=== PATIENT | female | born 1965 | race Caucasian/White ===

== ENCOUNTER 2018-11-20 14:29 | Inpatient (IN) ==
[2018-11-20] MEDS ORDERED: DILTIAZEM 50 MG/10 ML VIAL IV STA (15:21)
[2018-11-20] MEDS ORDERED: ENOXAPARIN 100 MG/ML SYRINGE SUBCUT STA (15:21)
[2018-11-20 15:29] LABS: Basophils # 0.1 10*3/uL (0.0-0.2); Basophils % 0.6 % (0.0-0.8); Eosinophils # 0.3 10*3/uL (0.0-0.87); Eosinophils % 1.9 % (0.00-10.9); Hematocrit 49.8 VOL% (35.7-47.0); Hemoglobin 15.6 GM/DL (12.0-16.0); Immature Granulocytes % 0.4 %; Immature Granulocytes Absolute 0.06 #; Lymphocytes # 3.5 10*3/uL (1.4-4.0); Lymphocytes % 26.5 % (21.3-54.2); Mean Corpuscular HGB Conc 31.3 GM/DL (32-36); Mean Corpuscular Volume 97.5 FL (87-102); Mean Platelet Volume 12.2 FL (9.6-12.0); Monocytes % 7.5 % (1.7-12.7); Neutrophils % 63.1 % (38.7-73.9); Platelet Count 285 T/CUMM (130-400); Red Blood Count 5.11 MC/CUMM (3.8-5.5); Red Cell Distribution Width 14.7 % (9.3-17.3); White Blood Count 13.4 T/CUMM (4-12)
[2018-11-20] MEDS: dilTIAZem Drip 125 MG/125 ML PREMIX IV SCH ×2 (15:45→23:44)
[2018-11-20 15:48] LABS: Albumin 4.1 G/DL (3.4-5.0); Bilirubin,Total 0.7 MG/DL (0.2-1.0); Calcium 10.2 MG/DL (8.5-10.1); Osmolality,Calculated 287.3 MOS/KG (273-304); Thyroid Stimulating Hormone 6.91 uIU/ml (0.358-3.74); Total Protein 7.8 G/DL (6.4-8.3)
[2018-11-20] MEDS ORDERED: ATENOLOL 25 MG TABLET ONE (16:58)
[2018-11-20] MEDS ORDERED: ATENOLOL 25 MG TABLET PO STA (16:59)
[2018-11-20] MEDS ORDERED: DOCUSATE SODIUM 100 MG CAPSULE PO PRN (20:26)
[2018-11-20] MEDS ORDERED: ONDANSETRON 4 MG/2 ML VIAL IV PRN (20:26)
[2018-11-20] MEDS ORDERED: ACETAMINOPHEN 325 MG TABLET PO PRN (20:26)
[2018-11-20] MEDS ORDERED: ATENOLOL 50 MG TABLET PO SCH (21:00)
[2018-11-20] MEDS: SODIUM CHLORIDE 0.9% 1,000 ML IV SCH (21:16)
[2018-11-20] MEDS: CETIRIZINE 10 MG TABLET PO SCH (21:17)
[2018-11-20] MEDS: GABAPENTIN 300 MG CAPSULE PO SCH (21:17)
[2018-11-20] MEDS: CHOLECALCIFEROL 1,000 UNIT TABLET PO SCH (21:17)
[2018-11-20] MEDS: ATORVASTATIN 10 MG TABLET PO SCH (21:18)
[2018-11-20] MEDS: ESCITALOPRAM 10 MG TABLET PO SCH (21:18)
[2018-11-20] MEDS: ESTRADIOL 1 MG TABLET PO SCH (21:18)
[2018-11-20] MEDS: POTASSIUM GLUCONATE 500 MG TABLET PO SCH (21:22)
[2018-11-21 00:12] LABS: Apearance,Urine CLEAR (Clear); Bilirubin,Urine Negative (Negative); Blood, Urine Negative (Negative); Glucose,Urine (UA) Negative (Negative); Ketones,Urine Negative (Negative); Nitrite,Urine Negative (Negative); Protein,Urine Negative; Urine Color Yellow (Yellow); Urine Specific Gravity 1.013 (1.001-1.035); Urine Urobilinogen < 2.0 EU/DL (0.2-1.0)
[2018-11-21 03:34] LABS: Basophils # 0.1 10*3/uL (0.0-0.2); Basophils % 0.6 % (0.0-0.8); Eosinophils # 0.4 10*3/uL (0.0-0.87); Eosinophils % 3.1 % (0.00-10.9); Hematocrit 42.5 VOL% (35.7-47.0); Hemoglobin 13.1 GM/DL (12.0-16.0); Immature Granulocytes % 0.3 %; Immature Granulocytes Absolute 0.04 #; Lymphocytes # 3.8 10*3/uL (1.4-4.0); Lymphocytes % 32.1 % (21.3-54.2); Mean Corpuscular HGB Conc 30.8 GM/DL (32-36); Mean Corpuscular Volume 99.1 FL (87-102); Mean Platelet Volume 12.3 FL (9.6-12.0); Monocytes % 7.7 % (1.7-12.7); Neutrophils % 56.2 % (38.7-73.9); Platelet Count 267 T/CUMM (130-400); Red Blood Count 4.29 MC/CUMM (3.8-5.5); Red Cell Distribution Width 14.7 % (9.3-17.3); White Blood Count 11.8 T/CUMM (4-12)
[2018-11-21 04:14] LABS: Free T4 (Free Thyroxine) 0.95 NG/DL (0.76-1.46)
[2018-11-21 04:24] LABS: Calcium 9.3 MG/DL (8.5-10.1); Osmolality,Calculated 284.4 MOS/KG (273-304); Risk Ratio 3.17; VLDL CHOLESTEROL 28.2 MG/DL
[2018-11-21] MEDS: SODIUM CHLORIDE 0.9% 1,000 ML IV SCH ×2 (07:33→17:36)
[2018-11-21] MEDS: APIXABAN 5 MG TABLET PO SCH ×2 (08:36→21:27)
[2018-11-21] MEDS: FAMOTIDINE 20 MG TABLET PO SCH (08:37)
[2018-11-21] MEDS: ESTRADIOL 1 MG TABLET PO SCH ×2 (08:37→21:27)
[2018-11-21] MEDS: GABAPENTIN 300 MG CAPSULE PO SCH ×2 (08:37→21:27)
[2018-11-21] MEDS: medroxyPROGESTERone 5 MG TABLET PO SCH (08:37)
[2018-11-21] MEDS ORDERED: DILTIAZEM CD 240 MG CAPSULE PO ONE (10:32)
[2018-11-21] MEDS: METOPROLOL TARTRATE 25 MG TABLET PO SCH ×2 (11:38→21:27)
[2018-11-21] MEDS: ASCORBIC ACID 500 MG TABLET PO SCH ×2 (11:38→21:27)
[2018-11-21] MEDS ORDERED: LISINOPRIL 2.5 MG TABLET PO SCH (21:00)
[2018-11-21] MEDS: CETIRIZINE 10 MG TABLET PO SCH (21:27)
[2018-11-21] MEDS: ESCITALOPRAM 10 MG TABLET PO SCH (21:27)
[2018-11-21] MEDS: POTASSIUM GLUCONATE 500 MG TABLET PO SCH (21:27)
[2018-11-21] MEDS: ATORVASTATIN 10 MG TABLET PO SCH (21:27)
[2018-11-21] MEDS: CHOLECALCIFEROL 1,000 UNIT TABLET PO SCH (21:27)
[2018-11-22] MEDS: SODIUM CHLORIDE 0.9% 1,000 ML IV SCH (03:37)
[2018-11-22 05:20] LABS: Basophils # 0.1 10*3/uL (0.0-0.2); Basophils % 0.5 % (0.0-0.8); Eosinophils # 0.3 10*3/uL (0.0-0.87); Eosinophils % 3.3 % (0.00-10.9); Hemoglobin 12.2 GM/DL (12.0-16.0); Immature Granulocytes % 0.3 %; Immature Granulocytes Absolute 0.03 #; Lymphocytes # 3.4 10*3/uL (1.4-4.0); Lymphocytes % 35.9 % (21.3-54.2); Mean Corpuscular HGB Conc 31.3 GM/DL (32-36); Mean Corpuscular Volume 98.7 FL (87-102); Mean Platelet Volume 12.3 FL (9.6-12.0); Monocytes % 7.7 % (1.7-12.7); Neutrophils % 52.3 % (38.7-73.9); Platelet Count 217 T/CUMM (130-400); Red Blood Count 3.95 MC/CUMM (3.8-5.5); Red Cell Distribution Width 14.6 % (9.3-17.3); White Blood Count 9.6 T/CUMM (4-12)
[2018-11-22 05:38] LABS: Calcium 8.1 MG/DL (8.5-10.1); Osmolality,Calculated 283.3 MOS/KG (273-304)
[2018-11-22 06:01] LABS: Calcium 8.3 MG/DL (8.5-10.1); Osmolality,Calculated 285.1 MOS/KG (273-304)
[2018-11-22] MEDS: ESTRADIOL 1 MG TABLET PO SCH (08:24)
[2018-11-22] MEDS: medroxyPROGESTERone 5 MG TABLET PO SCH (08:24)
[2018-11-22] MEDS: APIXABAN 5 MG TABLET PO SCH (08:24)
[2018-11-22] MEDS: ASCORBIC ACID 500 MG TABLET PO SCH (08:24)
[2018-11-22] MEDS: GABAPENTIN 300 MG CAPSULE PO SCH (08:25)
[2018-11-22] MEDS: METOPROLOL TARTRATE 25 MG TABLET PO SCH (08:25)
[2018-11-22] MEDS: FAMOTIDINE 20 MG TABLET PO SCH (08:25)
[2018-11-22] MEDS ORDERED: DILTIAZEM CD 240 MG CAPSULE PO SCH (09:00)
[2018-11-22] MEDS ORDERED: METOPROLOL TARTRATE 50 MG TABLET PO SCH (11:17)
[2018-11-22 12:06] VITALS: BP 132/104
== END 2018-11-22 14:32 | disposition home or self-care (01) | DRG 309 ==
LOC: N.EDINP 14:29 → N.ED 14:29 → SUATTDRO 17:49 → N.TELES 19:02
PROVIDERS: ADMIT Family Medicine; ATTEND Internal Medicine

== ENCOUNTER 2019-06-10 09:26 | Inpatient (IN) ==
[2019-06-10] MEDS ORDERED: DILTIAZEM 50 MG/10 ML VIAL IV STA (10:01)
[2019-06-10 10:55] LABS: Basophils # 0.1 10*3/uL (0.0-0.2); Basophils % 0.6 % (0.0-0.8); Eosinophils # 0.2 10*3/uL (0.0-0.87); Eosinophils % 2.4 % (0.00-10.9); Hematocrit 43.6 VOL% (35.7-47.0); Hemoglobin 13.8 GM/DL (12.0-16.0); Immature Granulocytes % 0.3 %; Immature Granulocytes Absolute 0.03 #; Lymphocytes # 2.5 10*3/uL (1.4-4.0); Lymphocytes % 26.7 % (21.3-54.2); Mean Corpuscular HGB Conc 31.7 GM/DL (32-36); Mean Corpuscular Volume 98.4 FL (87-102); Mean Platelet Volume 11.7 FL (9.6-12.0); Monocytes % 6.9 % (1.7-12.7); Neutrophils % 63.1 % (38.7-73.9); Platelet Count 216 T/CUMM (130-400); Red Blood Count 4.43 MC/CUMM (3.8-5.5); Red Cell Distribution Width 14.2 % (9.3-17.3); White Blood Count 9.2 T/CUMM (4-12)
[2019-06-10 11:29] LABS: Albumin 3.3 G/DL (3.4-5.0); Bilirubin,Total 0.6 MG/DL (0.2-1.0); Calcium 9.1 MG/DL (8.5-10.1); Free T4 (Free Thyroxine) 0.97 NG/DL (0.76-1.46); Osmolality,Calculated 284.1 MOS/KG (273-304); Thyroid Stimulating Hormone 3.55 uIU/ml (0.358-3.74); Total Protein 6.9 G/DL (6.4-8.3)
[2019-06-10] MEDS ORDERED: ONDANSETRON 4 MG/2 ML VIAL IV PRN (13:28)
[2019-06-10] MEDS ORDERED: ACETAMINOPHEN 325 MG TABLET PO PRN (13:28)
[2019-06-10] MEDS ORDERED: traZODone 50 MG TABLET PO PRN (15:05)
[2019-06-10] MEDS ORDERED: ASPIRIN EC 81 MG TABLET PO SCH (15:30)
[2019-06-10] MEDS ORDERED: ASCORBIC ACID 500 MG TABLET PO PRN (15:41)
[2019-06-10] MEDS ORDERED: BISOPROLOL 5 MG TABLET PO ONE (16:45)
[2019-06-10] MEDS: APIXABAN 5 MG TABLET PO SCH (20:43)
[2019-06-10] MEDS: BISOPROLOL 5 MG TABLET PO SCH (20:43)
[2019-06-10 20:56] LABS: Apearance,Urine CLOUDY (Clear); Bacteria,Urine Many /HPF (Few); Bilirubin,Urine Negative (Negative); Blood, Urine Small mg/dL (Negative); Glucose,Urine (UA) Negative (Negative); Ketones,Urine Negative (Negative); Nitrite,Urine Negative (Negative); Protein,Urine Negative; RBC,Urine 6 /HPF (0-4); Squamous Epithelial Cell,Urine Moderate /HPF (0-10); Urine Color Yellow (Yellow); Urine Specific Gravity 1.004 (1.001-1.035); Urine Urobilinogen < 2.0 EU/DL (0.2-1.0); WBC,Urine 12 /HPF (0-6)
[2019-06-10 21:12] LABS: Barbiturates Screen,Urine Negative (Negative); Benzodiazepines Screen,Urine Negative (Negative); Cannabinoid Screen,Urine Negative (Negative); Opiate Screen,Urine Negative (Negative); Phencyclidine Screen,Urine Negative (Negative)
[2019-06-11 06:15] LABS: Basophils # 0.1 10*3/uL (0.0-0.2); Basophils % 0.9 % (0.0-0.8); Eosinophils # 0.4 10*3/uL (0.0-0.87); Eosinophils % 4.9 % (0.00-10.9); Hematocrit 42.9 VOL% (35.7-47.0); Hemoglobin 13.6 GM/DL (12.0-16.0); Immature Granulocytes % 0.2 %; Immature Granulocytes Absolute 0.02 #; Lymphocytes # 3.4 10*3/uL (1.4-4.0); Lymphocytes % 42.3 % (21.3-54.2); Mean Corpuscular HGB Conc 31.7 GM/DL (32-36); Mean Corpuscular Volume 98.2 FL (87-102); Monocytes % 8.2 % (1.7-12.7); Neutrophils % 43.5 % (38.7-73.9); Platelet Count 197 T/CUMM (130-400); Red Blood Count 4.37 MC/CUMM (3.8-5.5)
[2019-06-11 06:46] LABS: Bilirubin,Total 0.8 MG/DL (0.2-1.0); Calcium 8.6 MG/DL (8.5-10.1); Osmolality,Calculated 283.1 MOS/KG (273-304); Risk Ratio 2.78; Total Protein 6.2 G/DL (6.4-8.3)
[2019-06-11] MEDS: APIXABAN 5 MG TABLET PO SCH (08:22)
[2019-06-11] MEDS: BISOPROLOL 5 MG TABLET PO SCH (08:22)
[2019-06-11] MEDS ORDERED: PANTOPRAZOLE 40 MG TABLET PO SCH (09:00)
[2019-06-11] MEDS ORDERED: BISOPROLOL 5 MG TABLET PO ONE (10:39)
[2019-06-11 12:26] VITALS: BP 130/94
[2019-06-11] MEDS ORDERED: BISOPROLOL 5 MG TABLET PO SCH (21:00)
== END 2019-06-11 15:27 | disposition home or self-care (01) | DRG 310 ==
LOC: N.ED 09:26 → N.EDINP 12:16 → N.TELES 13:00
PROVIDERS: ADMIT Internal Medicine; ATTEND Internal Medicine

== ENCOUNTER 2021-08-13 17:09 | Observation (INO) ==
[2021-08-13] MEDS ORDERED: HYDROmorphone 2 MG/1 ML VIAL IV STA (18:16)
[2021-08-13] MEDS ORDERED: SODIUM CHLORIDE 0.9% 500 ML IV STA ×2 (18:16→22:10)
[2021-08-13] MEDS ORDERED: PANTOPRAZOLE 40 MG VIAL IV STA (18:16)
[2021-08-13] MEDS ORDERED: ONDANSETRON 4 MG/2 ML VIAL IV STA (18:16)
[2021-08-13 19:07] LABS: Basophils # 0.1 10*3/uL (0.0-0.2); Basophils % 0.6 % (0.0-0.8); Eosinophils # 0.2 10*3/uL (0.0-0.87); Eosinophils % 1.2 % (0.00-10.9); Hematocrit 45.1 VOL% (35.7-47.0); Hemoglobin 14.5 GM/DL (12.0-16.0); Immature Granulocytes % 0.9 %; Immature Granulocytes Absolute 0.13 #; Lymphocytes % 14.2 % (21.3-54.2); Mean Corpuscular HGB Conc 32.2 GM/DL (32-36); Mean Corpuscular Volume 90.9 FL (87-102); Mean Platelet Volume 10.5 FL (9.6-12.0); Monocytes % 9.2 % (1.7-12.7); Neutrophils % 73.9 % (38.7-73.9); Platelet Count 347 T/CUMM (130-400); Red Blood Count 4.96 MC/CUMM (3.8-5.5); White Blood Count 13.9 T/CUMM (4-12)
[2021-08-13 19:30] LABS: Albumin 2.9 G/DL (3.4-5.0); Bilirubin,Total 0.4 MG/DL (0.20-1.00); Osmolality,Calculated 273.1 MOS/KG (273-304); Potassium 3.3 MMOL/L (3.5-5.1); Total Protein 8.1 G/DL (6.4-8.2)
[2021-08-13] MEDS ORDERED: DILTIAZEM 50 MG/10 ML VIAL IV STA (19:53)
[2021-08-13] MEDS ORDERED: DILTIAZEM 25 MG/5 ML VIAL IV ONE (19:54)
[2021-08-13 21:35] LABS: Bacteria,Urine Occasional /HPF (Few); Bilirubin,Urine Negative (Negative); Blood, Urine Small mg/dL (Negative); Glucose,Urine (UA) Negative (Negative); Ketones,Urine 5 mg/dL (Negative); Nitrite,Urine Negative (Negative); Protein,Urine 30 MG/DL; RBC,Urine 7 /HPF (0-4); Squamous Epithelial Cell,Urine Few /HPF (0-10); Urine Appearance Slightly Hazy (Clear); Urine Color Yellow (Yellow); Urine Specific Gravity > 1.060 (1.001-1.035); Urine Urobilinogen < 2.0 EU/DL (<2.0)
[2021-08-13] MEDS ORDERED: PIPERACILLIN/TAZOBACTAM 3,375 MG in SODIUM CHLORIDE 0.9% 100 ML IV STA (21:42)
[2021-08-14] MEDS ORDERED: ACETAMINOPHEN 325 MG TABLET PO PRN (00:17)
[2021-08-14] MEDS ORDERED: BISACODYL 10 MG SUPP RECTAL PRN (00:17)
[2021-08-14] MEDS ORDERED: IBUPROFEN 800 MG TABLET PO PRN (00:17)
[2021-08-14] MEDS ORDERED: MAGNESIUM HYDROXIDE SUSP 30 ML UDCUP PO PRN (00:17)
[2021-08-14] MEDS ORDERED: SODIUM CHLORIDE 0.9% 1,000 ML IV SCH (00:17)
[2021-08-14] MEDS ORDERED: ONDANSETRON 4 MG/2 ML VIAL IV PRN (00:17)
[2021-08-14] MEDS ORDERED: MORPHINE 2 MG/1 ML SYRINGE IV PRN (00:17)
[2021-08-14] MEDS: PIPERACILLIN/TAZOBACTAM 3,375 MG in SODIUM CHLORIDE 0.9% 100 ML IV SCH ×2 (06:01→14:51)
[2021-08-14 06:24] LABS: Albumin 2.5 G/DL (3.4-5.0); Bilirubin,Total 0.4 MG/DL (0.20-1.00); Osmolality,Calculated 274.8 MOS/KG (273-304); Potassium 3.4 MMOL/L (3.5-5.1); Total Protein 7.3 G/DL (6.4-8.2)
[2021-08-14 06:28] LABS: Basophils # 0.1 10*3/uL (0.0-0.2); Basophils % 0.6 % (0.0-0.8); Eosinophils # 0.3 10*3/uL (0.0-0.87); Eosinophils % 2.4 % (0.00-10.9); Hematocrit 41.5 VOL% (35.7-47.0); Hemoglobin 13.1 GM/DL (12.0-16.0); Immature Granulocytes % 0.7 %; Immature Granulocytes Absolute 0.09 #; Lymphocytes # 2.8 10*3/uL (1.4-4.0); Lymphocytes % 22.6 % (21.3-54.2); Mean Corpuscular HGB Conc 31.6 GM/DL (32-36); Mean Corpuscular Volume 92.6 FL (87-102); Mean Platelet Volume 10.6 FL (9.6-12.0); Monocytes % 9.9 % (1.7-12.7); Neutrophils % 63.8 % (38.7-73.9); Platelet Count 339 T/CUMM (130-400); Red Blood Count 4.48 MC/CUMM (3.8-5.5); Red Cell Distribution Width 16.9 % (9.3-17.3); White Blood Count 12.6 T/CUMM (4-12)
[2021-08-14] MEDS ORDERED: PANTOPRAZOLE 40 MG VIAL IV SCH (09:00)
[2021-08-14] MEDS ORDERED: DOCUSATE SODIUM 100 MG CAPSULE PO SCH (09:00)
[2021-08-14 15:37] VITALS: BP 106/61
== END 2021-08-14 20:10 | disposition home or self-care (01) ==
LOC: N.ED 17:09 → N.EDINP 17:09 → N.OB 08-14 08:39
PROVIDERS: ADMIT Obstetrics & Gynecology; ATTEND Obstetrics & Gynecology